=== PATIENT | male | born 1955 | race African-American/Black ===

== ENCOUNTER 2017-06-24 19:43 | Inpatient (IN) | payer MEDICAID, OTHER ==
[~2017-06-24] VITALS: Ht 170.2 cm; Wt 84.8 kg
[2017-06-24] MEDS ORDERED: FUROSEMIDE 40MG/4ML VIAL IV STA (19:49)
[2017-06-24] MEDS ORDERED: ASPIRIN 81MG TABLET PO STA (19:49)
[2017-06-24] MEDS ORDERED: NITROGLYCERIN 50MG PREMIX 250 ML IV ONE (20:00)
[2017-06-24 20:22] LABS: EOSINOPHILS % 3.9 % (0.0-5.0); HEMATOCRIT. 32.9 % (42.0-52.0); HEMOGLOBIN. 10.8 g/dL (14.0-18.0); MEAN CORPUSCULAR VOLUME 82.5 fL (80.0-94.0); MONOCYTES % 6.1 % (2.0-8.0); RED BLOOD CELL COUNT 3.98 mill/uL (4.7-6.1); RED CELL DISTRIBUTION WIDTH 16.9 % (11.6-14.6)
[2017-06-24 20:29] LABS: INR 1.1; PARTIAL THROMBOPLASTIN TIME 26.9 sec (23.4-31.0); PROTHROMBIN TIME 10.9 sec (9.4-11.6)
[2017-06-24 20:38] LABS: CARBON DIOXIDE 23 mEq/L (21-32); CHLORIDE 114 mEq/L (98-107); PLATELET 144 x1000/uL (130-400); TROPONIN I 0.17 ng/mL (0.00-0.04)
[2017-06-24 20:39] LABS: MEAN PLATELET VOLUME 10.4 fl (7.4-10.4)
[2017-06-24 21:57] LABS: BG BASE EXCESS -2.3 mmol/L (-2.0-2.0); BG BILEVEL POS AIRWAY PRESSURE 15/5; BG CARBOXYHEMOGLOBIN 0.2 % (0.5-1.5); BG DEOXYHEMOGLOBIN 0.5 % (0.0-5.0); BG FRACTION INSPIRED OXYGEN 100; BG METHEMOGLOBIN 0.3 % (0.0-1.5); BG OXYGEN SATURATION 99.5 % (92.0-98.5); BG PCO2 36.4 mmHg (35.0-45.0); BG PH 7.399 (7.350-7.450); BG PO2 339.3 mmHg (75.0-100.0); BG SAMPLE SITE RIGHT RADIAL; BG TOTAL HEMOGLOBIN 12.9 g/dL (12.0-18.0); BG VENT MODE MASK - BIPAP; BG VENT RATE 16 set
[2017-06-24] MEDS ORDERED: FUROSEMIDE 100MG/10ML VIAL IVP ONE (23:30)
[2017-06-25] VITALS (92 sets, daily range): BP systolic 135–200; BP diastolic 56–183
[2017-06-25 00:01] LABS: CLARITY URINE CLEAR (CLEAR); COLOR URINE YELLOW (YELLOW); GLUCOSE URINE NEGATIVE (NEGATIVE); KETONES URINE NEGATIVE (NEGATIVE); LEUKOCYTE ESTERASE URINE NEGATIVE (NEGATIVE); NITRITE URINE NEGATIVE (NEGATIVE); OCCULT BLOOD URINE TRACE (NEGATIVE); PROTEIN URINE 2+ (NEGATIVE); SPECIFIC GRAVITY URINE 1.011 (1.005-1.030); UROBILINOGEN URINE 0.2 E.U./dL (0.2-1.0)
[2017-06-25] MEDS: NITROGLYCERIN 50MG PREMIX 250 ML IV PRN ×4 (04:53→20:55)
[2017-06-25 05:29] LABS: BASOPHILS % 0.6 % (0.0-2.0); EOSINOPHILS % 3.3 % (0.0-5.0); HEMATOCRIT. 28.9 % (42.0-52.0); HEMOGLOBIN. 9.6 g/dL (14.0-18.0); MEAN CORPUSCULAR HEMOGLOBIN 27.4 pg (28.0-32.0); MEAN CORPUSCULAR VOLUME 82.7 fL (80.0-94.0); MEAN PLATELET VOLUME 11.5 fl (7.4-10.4); MONOCYTES % 9.1 % (2.0-8.0); PLATELET 138 x1000/uL (130-400); RED CELL DISTRIBUTION WIDTH 16.8 % (11.6-14.6)
[2017-06-25] MEDS ORDERED: FUROSEMIDE 40MG/4ML VIAL IVP SCH (09:00)
[2017-06-25] MEDS ORDERED: IPRATROPIUM/ALBUTEROL 0.5-3(2.5)MG/3ML NEB HHN PRN (13:15)
[2017-06-25] MEDS: PANTOPRAZOLE SODIUM 40 MG/VIAL IV SCH (13:44)
[2017-06-25] MEDS: ENOXAPARIN 30MG/0.3ML SYR SUBCUT SCH (13:44)
[2017-06-25 15:04] LABS: *AMPHETAMINES SCREEN URINE NEGATIVE (NEGATIVE); *BARBITURATES SCREEN URINE NEGATIVE (NEGATIVE); *BENZODIAZEPINES SCREEN URINE NEGATIVE (NEGATIVE); *COCAINE SCREEN URINE NEGATIVE (NEGATIVE); CANNABINOID URINE SCREEN NEGATIVE (NEGATIVE); METHADONE URINE SCREEN NEGATIVE (NEGATIVE); OPIATES URINE SCREEN NEGATIVE (NEGATIVE); PHENCYCLIDINE URINE SCREEN NEGATIVE (NEGATIVE)
[2017-06-25] MEDS: HYDRALAZINE HCL 50MG TABLET PO SCH ×2 (15:34→21:01)
[2017-06-25] MEDS: LOSARTAN POTASSIUM 50 MG TABLET PO SCH (15:34)
[2017-06-25] MEDS: NICOTINE 21MG PATCH TD SCH (15:34)
[2017-06-25] MEDS: IPRATROPIUM/ALBUTEROL 0.5-3(2.5)MG/3ML NEB HHN SCH ×2 (16:12→20:09)
[2017-06-25] MEDS: FUROSEMIDE 40MG/4ML VIAL IVP SCH (16:44)
[2017-06-25] MEDS ORDERED: MORPHINE SULFATE 4 MG/ML CPJ (NOT FOR IM USE) IV NR (17:45)
[2017-06-25] MEDS ORDERED: CLONIDINE 0.2MG TABLET PO SCH (17:45)
[2017-06-25] MEDS: CLONIDINE 0.2MG TABLET PO SCH (17:57)
[2017-06-25 17:59] LABS: BG BASE EXCESS 1.4 mmol/L (-2.0-2.0); BG CARBOXYHEMOGLOBIN 0.2 % (0.5-1.5); BG DEOXYHEMOGLOBIN 4.5 % (0.0-5.0); BG FRACTION INSPIRED OXYGEN 28; BG HCO3 ACT 23.9 mmol/L (22.0-26.0); BG METHEMOGLOBIN 0.4 % (0.0-1.5); BG OXYGEN SATURATION 95.5 % (92.0-98.5); BG OXYHEMOGLOBIN 94.9 % (94.0-97.0); BG PCO2 30.7 mmHg (35.0-45.0); BG PH 7.509 (7.350-7.450); BG PO2 74.8 mmHg (75.0-100.0); BG SAMPLE SITE RIGHT RADIAL; BG VENT MODE NASAL CANNULA
[2017-06-25 18:10] LABS: T4 FREE 1.41 ng/dL (0.76-1.46)
[2017-06-25] MEDS ORDERED: NITROPRUSSIDE 50 MG in DEXT 5% WATER 250 ML IV PRN (19:00)
[2017-06-25] MEDS: NICARDIPINE 100 MG in SODIUM CHLORIDE 0.9% 60 ML IV PRN (19:34)
[2017-06-25] MEDS: METOPROLOL TARTRATE 50MG TABLET PO SCH (21:01)
[2017-06-25 22:11] LABS: CREATINE KINASE MB FRACTION 2.2 ng/mL (0.5-3.6); TROPONIN I 0.13 ng/mL (0.00-0.04)
[2017-06-26] VITALS (75 sets, daily range): BP systolic 120–163; BP diastolic 43–98
[2017-06-26] MEDS: CLONIDINE 0.2MG TABLET PO SCH ×4 (00:11→17:06)
[2017-06-26] MEDS: IPRATROPIUM/ALBUTEROL 0.5-3(2.5)MG/3ML NEB HHN SCH ×6 (00:22→20:15)
[2017-06-26] MEDS: HYDRALAZINE HCL 50MG TABLET PO SCH ×3 (05:04→22:26)
[2017-06-26] MEDS: NICARDIPINE 100 MG in SODIUM CHLORIDE 0.9% 60 ML IV PRN (05:43)
[2017-06-26 07:40] LABS: CREATINE KINASE MB FRACTION 1.9 ng/mL (0.5-3.6); TROPONIN I 0.24 ng/mL (0.00-0.04)
[2017-06-26] MEDS: METOPROLOL TARTRATE 50MG TABLET PO SCH ×2 (09:00→21:24)
[2017-06-26] MEDS: LOSARTAN POTASSIUM 50 MG TABLET PO SCH (09:00)
[2017-06-26] MEDS: LORAZEPAM 2MG/ML CPJ IV PRN (09:29)
[2017-06-26] MEDS: FUROSEMIDE 40MG/4ML VIAL IVP SCH ×2 (09:49→16:56)
[2017-06-26] MEDS: ENOXAPARIN 30MG/0.3ML SYR SUBCUT SCH (09:50)
[2017-06-26] MEDS: PANTOPRAZOLE SODIUM 40 MG/VIAL IV SCH (09:50)
[2017-06-26] MEDS: NICOTINE 21MG PATCH TD SCH (09:51)
[2017-06-26 11:01] LABS: BASOPHILS % 0.5 % (0.0-2.0); EOSINOPHILS % 1.4 % (0.0-5.0); HEMATOCRIT. 30.7 % (42.0-52.0); HEMOGLOBIN. 10.1 g/dL (14.0-18.0); LYMPHOCYTES % 8.6 % (20.0-50.0); MEAN CORPUSCULAR HEMOGLOBIN 26.8 pg (28.0-32.0); MEAN CORPUSCULAR VOLUME 81.4 fL (80.0-94.0); MEAN PLATELET VOLUME 10.7 fl (7.4-10.4); MONOCYTES % 6.9 % (2.0-8.0); NEUTROPHILS % 82.6 % (40.0-76.0); PLATELET 156 x1000/uL (130-400); RED BLOOD CELL COUNT 3.78 mill/uL (4.7-6.1); RED CELL DISTRIBUTION WIDTH 16.4 % (11.6-14.6)
[2017-06-26 11:49] LABS: CHLORIDE 103 mEq/L (98-107)
[2017-06-26 11:57] LABS: CARBON DIOXIDE 25 mEq/L (21-32)
[2017-06-26] MEDS ORDERED: NOREPINEPHRINE 4 MG in DEXT 5% WATER 246 ML IV PRN (14:00)
[2017-06-26] MEDS ORDERED: POTASSIUM CHLORIDE INJ 40 MEQ in DEXT 5% WATER 250 ML IV SCH (15:00)
[2017-06-26 16:53] LABS: CREATINE KINASE MB FRACTION 2.6 ng/mL (0.5-3.6); TROPONIN I 0.29 ng/mL (0.00-0.04)
[2017-06-26] MEDS: POTASSIUM CHLORIDE 20MEQ TABLET SR PO SCH (21:24)
[2017-06-27] VITALS (35 sets, daily range): BP systolic 104–201; BP diastolic 50–99
[2017-06-27] MEDS: CLONIDINE 0.2MG TABLET PO SCH ×4 (00:37→16:56)
[2017-06-27] MEDS: IPRATROPIUM/ALBUTEROL 0.5-3(2.5)MG/3ML NEB HHN SCH ×6 (00:53→20:46)
[2017-06-27] MEDS: HYDRALAZINE HCL 50MG TABLET PO SCH ×3 (05:04→20:40)
[2017-06-27] MEDS: NICOTINE 21MG PATCH TD SCH (08:10)
[2017-06-27] MEDS: LOSARTAN POTASSIUM 50 MG TABLET PO SCH (08:11)
[2017-06-27] MEDS: PANTOPRAZOLE SODIUM 40 MG/VIAL IV SCH (08:11)
[2017-06-27] MEDS: FUROSEMIDE 40MG/4ML VIAL IVP SCH ×2 (08:11→16:56)
[2017-06-27] MEDS: POTASSIUM CHLORIDE 20MEQ TABLET SR PO SCH ×2 (08:11→16:56)
[2017-06-27] MEDS: METOPROLOL TARTRATE 50MG TABLET PO SCH ×2 (08:11→20:40)
[2017-06-27] MEDS: ENOXAPARIN 30MG/0.3ML SYR SUBCUT SCH (08:12)
[2017-06-27 08:40] LABS: HEMATOCRIT 32.6 % (42.0-52.0); HEMOGLOBIN 10.7 g/dL (14.0-18.0); MEAN CORPUSCULAR HEMOGLOBIN 26.9 pg (28.0-32.0); MEAN CORPUSCULAR VOLUME 81.5 fL (80.0-94.0); PLATELET 176 x1000/uL (130-400); RED CELL DISTRIBUTION WIDTH 16.5 % (11.6-14.6)
[2017-06-27] MEDS ORDERED: METO50TA5 PO (11:54)
[2017-06-27] MEDS ORDERED: HYDR-4135 PO (11:54)
[2017-06-27] MEDS ORDERED: FURO-151 PO (11:54)
[2017-06-27] MEDS ORDERED: CLON0.2T12 PO (11:54)
[2017-06-27] MEDS ORDERED: LOSA50TA3 PO (11:54)
[2017-06-27] MEDS: LORAZEPAM 2MG/ML CPJ IV PRN (21:03)
[2017-06-28] VITALS: BP 141/83
[2017-06-28] MEDS: IPRATROPIUM/ALBUTEROL 0.5-3(2.5)MG/3ML NEB HHN SCH ×3 (00:50→08:20)
[2017-06-28 04:00] VITALS: BP 146/90
[2017-06-28] MEDS: LORAZEPAM 2MG/ML CPJ IV PRN (05:17)
[2017-06-28] MEDS: CLONIDINE 0.2MG TABLET PO SCH ×4 (05:23→16:28)
[2017-06-28] MEDS: HYDRALAZINE HCL 50MG TABLET PO SCH ×2 (05:24→13:38)
[2017-06-28 08:04] VITALS: BP 158/90
[2017-06-28] MEDS: METOPROLOL TARTRATE 50MG TABLET PO SCH (08:25)
[2017-06-28] MEDS: POTASSIUM CHLORIDE 20MEQ TABLET SR PO SCH ×2 (08:25→16:28)
[2017-06-28] MEDS: PANTOPRAZOLE SODIUM 40 MG/VIAL IV SCH (08:25)
[2017-06-28] MEDS: LOSARTAN POTASSIUM 50 MG TABLET PO SCH (08:25)
[2017-06-28] MEDS: FUROSEMIDE 40MG/4ML VIAL IVP SCH ×2 (08:25→16:28)
[2017-06-28] MEDS: ENOXAPARIN 30MG/0.3ML SYR SUBCUT SCH (08:26)
[2017-06-28] MEDS: NICOTINE 21MG PATCH TD SCH (10:53)
[2017-06-28 11:53] VITALS: BP 154/78
[2017-06-28 16:04] VITALS: BP 146/98
[2017-06-29] MEDS ORDERED: FAMOTIDINE 20MG TABLET PO SCH (09:00)
== END 2017-06-28 17:50 | disposition home or self-care (01) | DRG 52 ==
LOC: ER 20:17 → CVICU 22:58 → EDBEDREQSVC 23:02 → EDBEDREQ 23:02 → ENRESERV 23:09 → CANRESERV 23:09 → 6WST 06-27 15:01
PROVIDERS: ADMIT Family Medicine; ATTEND Family Medicine
PROC: 5A09357 Assistance with Respiratory Ventilation, Less than 24 Consecutive Hours, Continuous Positive Airway Pressure (ICD-10-PCS; principal; 2017-06-24)
DX: G93.41 Metabolic encephalopathy (principal); J96.00 Acute respiratory failure, unspecified whether with hypoxia or hypercapnia; E43 Unspecified severe protein-calorie malnutrition; I50.43 Acute on chronic combined systolic (congestive) and diastolic (congestive) heart failure; I13.0 Hypertensive heart and chronic kidney disease with heart failure and stage 1 through stage 4 chronic kidney disease, or unspecified chronic kidney disease; N17.9 Acute kidney failure, unspecified; F03.90 Unspecified dementia, unspecified severity, without behavioral disturbance, psychotic disturbance, mood disturbance, and anxiety; J44.9 Chronic obstructive pulmonary disease, unspecified; I16.9 Hypertensive crisis, unspecified; N18.9 Chronic kidney disease, unspecified; I27.2 Other secondary pulmonary hypertension; I42.9 Cardiomyopathy, unspecified; F17.210 Nicotine dependence, cigarettes, uncomplicated; Z79.899 Other long term (current) drug therapy
CPT/HCPCS: 36415; 36600; 70450; 71010; 76770; 80048; 80053; 80061; 80305; 81001; 81003; 82375; 82550; 82553; 82805; 83036; 83605; 83880; 84439; 84443; 84484; 85025; 85027; 85379; 85610; 85730; 87040; 93005; 93306; 93970; 94640; 94660; 94664; 96365; 96375; 99291; C9113; J1650; J1940; J2060; J2270; J3480; J3490; J7050; J7060; J7620